=== PATIENT | female | born 1980 | race Caucasian/White ===

== ENCOUNTER → 2024-07-27 11:45 | Outpatient (CLI) | payer BC, SELFPAY ==
--- NOTE | 2024-07-27 11:50 | DI.US.S_ITS ---
PROCEDURE: US PELVIC COMPLETE INDICATIONS: dysmenorrhea TECHNIQUE: Real-time scanning was performed of the pelvic organs, with image documentation. Additional endovaginal scanning was necessary due to incomplete visualization of the adnexal and endometrial structures by transabdominal scanning. COMPARISON: None. FINDINGS: Uterus: Uterus is anteverted and normal in size at 9.0 x 6.0 x 5.6 cm. The myometrium is homogeneous. The endometrium measures 6.2 mm combined thickness. Mild heterogeneous appearance of endometrium. Within the mid anterior intramural region there is a 12 x 17 x 50 mm focus of heterogeneous echogenicity. Ovaries: The right ovary measures 2.2 x 2.3 x 1.6 cm, with a calculated ovarian volume of 4.2 cc. The left ovary measures 2.7 x 2.9 x 1 3 cm, with a calculated ovarian volume of 5.2 cc. Thick-walled cystic mass is present within the left ovary. Other: No pathologic free abdominal or pelvic fluid. IMPRESSION: Thick-walled cystic structure within the left ovary suggestive complex cysts. 1 month interval follow-up is recommended to document regression/resolution. Otherwise, further workup with MRI gynecologic protocol is recommended. We strive to produce accurate, complete, and clear reports of imaging services. To assist us in improving patient care, this report was composed using standard report templates and voice recognition software. Therefore, it may contain abnormal punctuation, insertions and/or omissions. Occasional wrong-word or sound-alike substitutions may occur. Though we review the report and make efforts to correct it, we do recommend that the report be read carefully in proper context to recognize any text inaccuracies. Dictated by: Inocencia Tai M.D. on 07/27/2024 at 17:30 Approved by: Inocencia Tai M.D. on 07/27/2024 at 17:33
== END ==
PROVIDERS: PCP Physician Assistant; Referring Provider Physician Assistant; Visit Provider Physician Assistant
DX: N83.202 Unspecified ovarian cyst, left side (principal); N94.6 Dysmenorrhea, unspecified
CPT/HCPCS: 76830; 76856; 93975

== ENCOUNTER → 2024-08-26 07:35 | Outpatient (CLI) | payer BC, SELFPAY ==
--- NOTE | 2024-08-26 07:37 | DI.US.S_ITS ---
PROCEDURE: US PELVIC COMPLETE INDICATIONS: Abnormal pelvic us TECHNIQUE: Real-time scanning was performed of the pelvic organs, with image documentation. Additional endovaginal scanning was necessary due to incomplete visualization of the adnexal and endometrial structures by transabdominal scanning. COMPARISON: [facility], US, US PELVIC COMPLETE, 07/27/2024, 12:22. FINDINGS: Uterus: Uterus is anteverted and normal in size at 9.7 x 5.5 x 6.6 cm. The myometrium is heterogeneous. The endometrium measures 9.5 mm combined thickness. There is a mid anterior intramural fibroid measuring 1.9 x 1.8 x 1.9 cm Ovaries: The right ovary measures 2.6 x 2.8 x 1.7 cm, with a calculated ovarian volume of 6.2 cc. The left ovary measures 0.3 x 1.9 x 1.7 cm, with a calculated ovarian volume of 2.2 cc. The ovaries have a normal sonographic appearance. Less than 12 follicles can be seen in each ovary. There is redemonstration of complex cystic mass in left adnexal region measuring 3.5 x 3.7 x 3.5 cm, previously 5.1 x 4.4 x 4.4 cm. Other: No pathologic free abdominal or pelvic fluid. IMPRESSION: Uterine fibroid measuring up to 1.9 cm. Left adnexal cystic structure measuring up to 3.7 cm, decreased in size since prior ultrasound on 07/27/2024. Approved by: Mary Morfin M.D.,Ph.D. on 08/26/2024 at 15:36
== END ==
PROVIDERS: PCP Physician Assistant; Referring Provider Physician Assistant; Visit Provider Physician Assistant
DX: N94.6 Dysmenorrhea, unspecified (principal); D25.1 Intramural leiomyoma of uterus; R93.89 Abnormal findings on diagnostic imaging of other specified body structures
CPT/HCPCS: 76830; 76856